=== PATIENT | female | born 1950 | race Caucasian/White ===

== ENCOUNTER 2018-08-20 14:28 | Emergency (ER) | payer MEDICARE, BC ==
[~2018-08-20] VITALS: Ht 165.1 cm; Wt 49.9 kg
[2018-08-20] MEDS ORDERED: IV NORMAL SALINE 1000 ML BAG IV ONE (14:45)
[2018-08-20] MEDS ORDERED: ONDANSETRON 4 MG/2 ML VIAL IV ONE (14:45)
[2018-08-20] MEDS ORDERED: KETOROLAC TROMETHAMINE 30 MG INJ IVP ONE (14:45)
[2018-08-20] MEDS ORDERED: ONDANSETRON 4 MG/2 ML VIAL ONE (14:49)
[2018-08-20] MEDS ORDERED: KETOROLAC TROMETHAMINE 30 MG INJ ONE (14:49)
[2018-08-20 15:01] LABS: BASOPHILS # (AUTO) 0.1 K/uL (0.0-8.0); BASOPHILS % (AUTO) 0.6 % (0.0-2.0); EOSINOPHILS % (AUTO) 0.1 % (0.0-7.0); HEMOGLOBIN 12.6 g/dL (10.9-14.3); LYMPHOCYTES # (AUTO) 2.1 K/uL (20.0-40.0); LYMPHOCYTES % (AUTO) 20.9 % (20.5-51.5); MEAN CORPUSCULAR HEMOGLOBIN 31.1 uug (24.7-32.8); MEAN CORPUSCULAR HGB CONC 34 g/dL (32.3-35.6); MEAN CORPUSCULAR VOLUME 91.6 fL (75.5-95.3); MONOCYTES # (AUTO) 0.7 K/uL (2.0-10.0); MONOCYTES % (AUTO) 6.7 % (0.0-11.0); NEUTROPHILS # (AUTO) 7.1 K/uL (1.8-8.9); NEUTROPHILS % (AUTO) 71.7 % (38.5-71.5); PLATELET COUNT (AUTO) 298 K/uL (179-408); RED BLOOD CELL COUNT(AUTO) 4.04 MIL/uL (3.63-4.92); WHITE BLOOD COUNT (AUTO) 9.9 K/uL (3.8-11.8)
[2018-08-20 15:12] LABS: CREATININE 0.9 mg/dL (0.6-1.3); POTASSIUM 3.2 mmol/L (3.5-5.1)
--- NOTE | 2018-08-20 15:13 | NUR ---
Extra warm blankets on. Comfort and safety measures maintained.
[2018-08-20] MEDS ORDERED: MECLIZINE HCL 25 MG TABLET PO ONE (15:15)
[2018-08-20 15:18] LABS: BILIRUBIN,DIRECT 0.2 mg/dL (0.0-0.2); BILIRUBIN,TOTAL 0.6 mg/dL (0.2-1.0); TOTAL PROTEIN, SERUM 7.8 g/dL (6.4-8.2)
[2018-08-20] MEDS ORDERED: POTASSIUM CHLORIDE 20 MEQ TAB.PRT.SR PO ONE (15:30)
[2018-08-20] MEDS ORDERED: MORPHINE SULFATE 2 MG/1 ML DISP.SYRIN IV ONE (15:45)
[2018-08-20] MEDS ORDERED: MECLIZINE HCL 25 MG TABLET ONE (15:45)
[2018-08-20] MEDS ORDERED: PROCHLORPERAZINE EDISYLATE 10 MG/2 ML VIAL IV ONE (15:45)
[2018-08-20] MEDS ORDERED: PROCHLORPERAZINE EDISYLATE 10 MG/2 ML VIAL ONE (15:46)
[2018-08-20] MEDS ORDERED: MORPHINE SULFATE 4 MG/1 ML DISP.SYRIN ONE (15:46)
[2018-08-20] MEDS ORDERED: POTASSIUM CHLORIDE 20 MEQ TAB.PRT.SR ONE (15:46)
--- NOTE | 2018-08-20 16:01 | NUR ---
PO meds are on hold for now, pt is still with nausea.
--- NOTE | 2018-08-20 17:01 | NUR ---
Patient is resting comfortably on gurney with eyes closed, easily arousable. Patient was able to tolerate oral intake (juice & crackers). No vomiting or diarrhea episodes seen while in ER.
--- NOTE | 2018-08-20 17:16 | NUR ---
IV removed. Catheter intact and site benign. Pressure and 4x4 gauze applied to site. No bleeding noted. Patient discharged to home in stable conditon & brisk steady gait. Written and verbal after care instructions given to patient and family. Patient and family verbalized understanding of instructions.
== END 2018-08-20 17:16 | disposition home or self-care (01) ==
LOC: ER 14:28
DX: R11.10 Vomiting, unspecified (principal); R19.7 Diarrhea, unspecified; F15.93 Other stimulant use, unspecified with withdrawal; R94.31 Abnormal electrocardiogram [ECG] [EKG]
CPT/HCPCS: 36415; 80048; 80076; 83690; 85025; 87400; 93005; 96361; 96374; 96375; 99284; J0780; J1885; J2270; J2405 ×2; A4663; J3490; J7030; J8597

== ENCOUNTER 2025-07-12 15:09 | Emergency (ER) | payer MEDICARE, BC ==
[~2025-07-12] VITALS: Ht 162.6 cm; Wt 49.9 kg
[2025-07-12 15:11] VITALS: BP 140/59
[2025-07-12] MEDS ORDERED: OXYC-128 PO (16:15)
[2025-07-12 16:29] VITALS: BP 135/61; TEMP 98; O2SAT 99
== END 2025-07-12 16:29 | disposition home or self-care (01) ==
LOC: ER 15:24
DX: S05.41XA Penetrating wound of orbit with or without foreign body, right eye, initial encounter (principal); F11.20 Opioid dependence, uncomplicated; Z96.641 Presence of right artificial hip joint; X58.XXXA Exposure to other specified factors, initial encounter; Y93.89 Activity, other specified; Y92.89 Other specified places as the place of occurrence of the external cause; Y99.9 Unspecified external cause status
CPT/HCPCS: A4606; A4663